=== PATIENT | male | born 1985 | race African-American/Black ===

== ENCOUNTER 2016-06-17 06:40 | Emergency (ER) | payer BC ==
[~2016-06-17] VITALS: Ht 175.3 cm; Wt 88.5 kg
[~2016-06-17 06:40] MED LIST: MULTIVITAMIN1 EAC2 PO; NAPROXEN500 MG PO; TESSALON200 MG PO
[2016-06-17] MEDS ORDERED: TYLENOL WITH C1 EACH PO (08:10)
[2016-06-17 08:29] VITALS: BP 142/40
== END 2016-06-17 08:34 | disposition home or self-care (01) ==
LOC: EME 06:40
DX: S93.401A Sprain of unspecified ligament of right ankle, initial encounter (principal); X50.9XXA Other and unspecified overexertion or strenuous movements or postures, initial encounter; Y93.K1 Activity, walking an animal
CPT/HCPCS: 73610; 99281; 99284